=== PATIENT | male | born 1990 | race Hispanic/Latino ===

== ENCOUNTER 2017-02-16 12:29 | Emergency (ER) | payer OTHER ==
[2017-02-16 12:39] VITALS: BP 134/87
[2017-02-16] MEDS ORDERED: NORCO 5/325 PO ONE ×2 (13:40→13:42)
--- NOTE | 2017-02-16 13:45 | XRay Report ---
LEFT FINGERS, 3 VIEWS History: Left thumb pain, foreign body. Findings: A metallic foreign body consistent with a nail is embedded within the soft tissues of the distal thumb. No acute osseous injury or joint pathology is identified. Impression: Foreign body as described. No acute bony injury.
--- NOTE | 2017-02-16 13:47 | Emergency Department Report ---
Upper Extremity - [facility] Chief Complaint: Extremity Injury, Upper Stated Complaint: NAIL IN LEFT THUMB Time Seen by Provider: 02/16/17 13:21 Upper Extremity: Left Thumb (nail ) Occurred When: Today Mechanism: Other (finishing nail through thumb ) Symptoms: Yes Pain with Movement, Yes Swelling, Yes Laceration or Abrasion ( puncture wound entrance and exit noted ), No Deformity, No Limited Range of Movement, No Numbness, No Weakness, No Bruising/Ecchymosis ED Review of Systems ROS: Stated complaint: NAIL IN LEFT THUMB Other details as noted in HPI Constitutional: denies: chills, fever Eyes: denies: eye pain, eye discharge, vision change ENT: denies: ear pain, throat pain Respiratory: denies: cough, shortness of breath, wheezing Cardiovascular: denies: chest pain, palpitations Endocrine: no symptoms reported Gastrointestinal: denies: abdominal pain, nausea, diarrhea Genitourinary: denies: urgency, dysuria Musculoskeletal: other (nail impelled in left thumb ) Skin: denies: rash, lesions Neurological: denies: headache, weakness, paresthesias Psychiatric: denies: anxiety, depression Hematological/Lymphatic: as per HPI ED Past Medical Hx - Past Medical History Previous Medical History?: No - Surgical History Past Surgical History?: No - Social History Smoking Status: Current Some Day Smoker - Medications Home Medications: Home Medications Medication Instructions Recorded Confirmed Last Taken Type Cephalexin [Keflex] 500 mg PO QID 10 Days #40 capsule 02/16/17 Unknown Rx traMADol [Ultram 50 MG tab] 50 mg PO Q6HR PRN #21 tablet 02/16/17 Unknown Rx Upper Extremity Exam - Exam General: Vital signs noted. No distress. Alert and acting appropriately. Head and Torso: No HEENT Abnormality, No Neck Tenderness, No Chest/Lungs Abnormality, No Abdominal Tenderness, No Back Tenderness Shoulder Exam: No Shoulder Tenderness, No Clavicle Tenderness, No Normal Range of Motion in Shoulder, No Shoulder Deformity, No AC Joint Tenderness Arm Exam: No Arm/Humerus Tenderness, No Arm Deformity Elbow: Yes Normal Range of Motion in Elbow, No Elbow Tenderness, No Elbow Deformity Forearm: No Forearm Tenderness, No Forearm Deformity, No Pain with Pronation, No Pain with Supination Wrist: Yes Normal ROM in Wrist, Yes Pain with Axial Thumb Compression, No Wrist Tenderness, No Wrist Deformity, No Snuffbox Tenderness Hand: Yes Digit Tenderness (left thumb ), Yes Normal ROM in Digit(s), No Hand Tenderness, No Hand Deformity, No Digit(s) Deformity, No Tendon Dysfunction CMS Exam: Yes Broken Skin, Yes Normal Distal Pulses, Yes Normal Capillary Refill , Yes Normal Distal Sensation ED Course Vital Signs 02/16/17 12:34 Temperature 98.2 F Pulse Rate 92 H Respiratory 20 Rate Blood Pressure 134/87 O2 Sat by Pulse 96 Oximetry - Procedure Description Procedures done: foreign body removal pt wtih fininishing nail to left dorsal thumb entrance, exit palmar side, through distal phalnx, no dip involvment rom intact no tendon involvmement, no flexor and extensor tendons intact pain axial loading prior to anesthetia, sight cleaned with betadine solution, anesthesia with 1% lidocain 3m. digital block , nail removed wtih forceps intact, all bleedign controled, follow up xray noted no foreigng body remaining, neuro check completed rom intact , flexion and extension, hitchhiker intact axial loading pain relieved, no displaced fracture, betadine dressing applied, all bleeding controled, pt tolerated procedure with minimal distress given wound care instructions including dressing changes and follow up with orthopedics, Dr. Wren , in 2-3 days. - Nerve Block Consent Obtained: verbal consent Time Out Performed: Yes Local Anesthetic Used: Lidocaine 1% Amount of anesthesia used: 3 Side: left Nerve Blocks: digital Procedure Successful: Yes Complications: none Patient Tolerated Procedure: well Additional Comments: foreign body thumb nail ED Medical Decision Making - Medical Decision Making pt is a 26 duncan who accidently shot an finished nail through distal tip of left thumb while installing transfer boarding to floor approx 4 hrs ago pt stated immediate pain and swelling 12/06 apptempt to self remove but was too painful so he drove in to ed. 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 Wren in 1-2 days , given wound care instructions will dc to home with keflex po , tramadol prn pain , pt given strict instructions to return to ed if symptoms of infection, develop , pt verbalized agreement and understanding with discharge plan. Critical care attestation.: If time is entered above; I have spent that time in minutes in the direct care of this critically ill patient, excluding procedure time. ED Disposition Clinical Impression: Foreign body of thumb, left Qualifiers: Encounter type: initial encounter Qualified Code(s): S60.352A - Superficial foreign body of left thumb, initial encounter Puncture wound of thumb Qualifiers: Encounter type: initial encounter Laterality: left Qualified Code(s): S61.032A - Puncture wound without foreign body of left thumb without damage to nail, initial encounter Disposition: DC-01 TO HOME OR SELFCARE Is pt being admited?: No Does the pt Need Aspirin: No Condition: Good Instructions: Soft Tissue Foreign Body (ED), Thumb Fracture (ED), Puncture Wound (ED) Prescriptions: Cephalexin [Keflex] 500 mg PO QID 10 Days #40 capsule traMADol [Ultram 50 MG tab] 50 mg PO Q6HR PRN #21 tablet PRN Reason: Pain Referrals: PRIMARY CAREMD [Primary Care Provider] - 3-5 Days MATTIE WREN MD [Staff Physician] - 3-5 Days Forms: Work/School Release Form(ED) Time of Disposition: 14:14
--- NOTE | 2017-02-16 14:18 | XRay Report ---
LEFT FINGERS, 3 VIEWS History: Left thumb pain, and nail removal. Findings: The foreign body in the distal left thumb has been removed since earlier today at 1248 hrs. No osseous abnormality is detected. Impression: Normal exam.
== END 2017-02-16 14:41 | disposition home or self-care (01) ==
LOC: ED 12:29
DX: S61.032A Puncture wound without foreign body of left thumb without damage to nail, initial encounter (principal); S60.352A Superficial foreign body of left thumb, initial encounter; F17.200 Nicotine dependence, unspecified, uncomplicated; X58.XXXA Exposure to other specified factors, initial encounter; Y93.9 Activity, unspecified; Y92.89 Other specified places as the place of occurrence of the external cause; Y99.8 Other external cause status